=== PATIENT | female | born 1990 | race American Indian/Alaskan Native ===

== ENCOUNTER 2020-11-07 08:14 | Emergency (ER) | payer SELFPAY ==
[2020-11-07 09:00] VITALS: BP 119/80
== END 2020-11-07 10:04 | disposition home or self-care (01) ==
LOC: ED 08:14
DX: Z00.8 Encounter for other general examination (principal); Z53.21 Procedure and treatment not carried out due to patient leaving prior to being seen by health care provider

== ENCOUNTER 2021-12-15 01:41 | Emergency (ER) | payer MEDICAID ==
[2021-12-15] MEDS ORDERED: dexAMETHasone 4 MG/ML VIAL IV ONE (03:19)
[2021-12-15] MEDS ORDERED: diphenhydrAMINE 50 MG/ML VIAL IV ONE (03:19)
[2021-12-15] MEDS ORDERED: SODIUM CHLORIDE 0.9% 1000 ML 1,000 ML IV ONE (03:19)
[2021-12-15] MEDS ORDERED: METOCLOPRAMIDE 10 MG/2 ML INJ IV ONE (03:19)
[2021-12-15] MEDS ORDERED: KETOROLAC 30 MG/1 ML INJ IV ONE (03:19)
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
[2021-12-15 05:22] VITALS: BP 132/76
== END 2021-12-15 05:29 | disposition home or self-care (01) ==
LOC: ED 01:41
DX: R51.9 Headache, unspecified (principal)
CPT/HCPCS: 96361; 96374; 96375; 99282; J1100; J1200; J1885; J2765; J7030